=== PATIENT | female | born 1945 | race Caucasian/White ===

== ENCOUNTER → 2017-01-04 | Outpatient (CLI) | payer MEDICARE, BC ==
[~2017-01-04] MED LIST: AMLODIPINE-BENA1 CAP PO; AZOR 10/20 MG T1 TAB PO; CALCIUM1 TAB.CHEW PO; HYDROCHLOROTH12.5 M1 PO; MULTI VITAMIN1 EACH PO; VITAMIN D-32000 UNI2 PO; ZETIA PO
--- NOTE | ~2017-01-04 | US128 ---
[id number] [facility] [address] [facility] [place], [place] [address] [id number] O MR#: [id number] Acc #: [id number] NAME: SUNITA DEAL : 1945 SEX: F STUDY DATE/TIME: 01/04/2017 15:01 UNIT: [facility] ROOM: STUDY DESCRIPTION: Thyroid Attending Physician: Ozzie Oneal Jr., M.D. Referring Physician: Ozzie Oneal Jr., M.D. Ordering Physician: Ozzie Oneal Jr., M.D. Primary Care Physician: Ozzie Oneal Jr., M.D. MEDICAL IMAGING REPORT This report is preliminary unless electronic signature is present EXAM Thyroid ultrasound, 01/04/2017 HISTORY Enlarged thyroid on physical examination 12/22/2016, goiter. Dysphagia. Patient feels something stuck in throat. FINDINGS The right thyroid lobe measures 4.3 cm x 2.1 cm x 1.9 cm while the left thyroid lobe measured 4.0 cm x 2.2 cm x 2.1 cm. The isthmus measured 4.0 mm in the AP direction. Both thyroid lobes are heterogeneous in echotexture and demonstrate no discrete cystic or solid nodules. There are no masses extrinsic to the thyroid. Color-flow Doppler images show increased blood flow to both thyroid lobes. IMPRESSION Diffusely enlarged heterogeneous hypervascular thyroid demonstrating no discrete cystic or solid nodules. Dictated by... Anthony Mckay M.D. THIS IS AN ELECTRONICALLY VERIFIED REPORT Anthony Mckay M.D. at 01/06/2017 7:46 AM LESLIE/lesli TD: 01/05/2017 09:59 JOB #: [id number] MEDICAL IMAGING REPORT Page 1 of 1 COPY
== END | disposition home or self-care (01) ==
LOC: CGUS 14:36
DX: E04.9 Nontoxic goiter, unspecified (principal)
CPT/HCPCS: 76536